=== PATIENT | male | born 1990 | race Caucasian/White ===

== ENCOUNTER 2017-12-12 01:35 | Inpatient (IN) | payer MEDICAID ==
[~2017-12-12] VITALS: Ht 188 cm; Wt 80.3 kg
[2017-12-12] VITALS (13 sets, daily range): BP systolic 121–154; BP diastolic 72–99
[~2017-12-12 01:35] MED LIST: CLIN300C53 PO; DOXY-200 PO; ERYT333T76 PO; IBUP-1986 PO; LACT1CAP26 PO
[2017-12-12] MEDS ORDERED: ondansetron/PF 4mg/2ml inj IV ONE (01:55)
[2017-12-12] MEDS ORDERED: normal saline 1000ML IV soln IV ONE (01:55)
[2017-12-12] MEDS ORDERED: morphine 2 MG/ML inj. syringe IV ONE (01:55)
[2017-12-12] MEDS ORDERED: vancomycin/NS 1 GM ADD-VANTAGE 250 ML IV ONE (01:55)
[2017-12-12] MEDS ORDERED: clindamycin-Cleocin 900mg/D5W 50 ML IV ONE (01:55)
[2017-12-12 04:39] LABS: BASOPHILS # (AUTO) 0.1 X10'3 (0-0.2); BASOPHILS % (AUTO) 0.4 % (0-1); EOSINOPHILS # (AUTO) 0.3 X10'3 (0-0.9); EOSINOPHILS % (AUTO) 2.3 % (0-6); HEMATOCRIT 35.6 % (42.0-52.0); HEMOGLOBIN 11.9 g/dl (14.0-17.9); LYMPHOCYTES # (AUTO) 1.9 X10'3 (1.1-4.8); LYMPHOCYTES % (AUTO) 13.5 % (21-51); MEAN CORPUSCULAR HEMOGLOBIN 28.7 PG (27.0-31.0); MEAN CORPUSCULAR HGB CONC 33.5 % (33.0-36.5); MEAN CORPUSCULAR VOLUME 85.7 FL (78-98); MEAN PLATELET VOLUME 7.5 FL (7.4-10.4); MONOCYTES # (AUTO) 0.9 X10'3 (0-0.9); MONOCYTES % (AUTO) 6.6 % (2-12); NEUTROPHILS % (AUTO) 77.2 % (42-75); PLATELET COUNT 330 X10'3 (140-440); RED BLOOD COUNT 4.15 X10'6 (4.70-6.10); RED CELL DISTRIBUTION WIDTH 14.6 % (11.5-14.5); WHITE BLOOD COUNT 14.2 X10'3 (4.5-11.0)
[2017-12-12 04:57] LABS: ALANINE AMINOTRANSFERASE 40 U/L (12-78); ALBUMIN/GLOBULIN RATIO 0.8 (1.1-1.5); ALKALINE PHOSPHATASE 64 IU/L (46-116); ANION GAP 4 (8-16); ASPARTATE AMINO TRANSFERASE 30 U/L (10-37); BILIRUBIN,TOTAL 0.5 MG/DL (0.1-1.0); BLOOD UREA NITROGEN 12 MG/DL (7-18); BUN/CREATININE RATIO 17.1 (5.4-32.0); CALCIUM 8.5 MG/DL (8.5-10.1); CHLORIDE 103 MMOL/L (99-107); GLUCOSE 138 MG/DL (70-104); POTASSIUM 3.7 MMOL/L (3.5-5.1); SODIUM 137 MMOL/L (135-145); TOTAL CARBON DIOXIDE 30.1 MMOL/L (24-32); TOTAL PROTEIN 6.8 G/DL (6.4-8.2); eGFR > 90 ML/MIN
[2017-12-12 04:58] LABS: PARTIAL THROMBOPLASTIN TIME 36 SECONDS (22-32); PROTHROMBIN TIME 10.2 SECONDS (9.0-12.0)
[2017-12-12] MEDS: normal saline 1000ml 1,000 ML IV SCH ×3 (06:17→20:15)
[2017-12-12] MEDS ORDERED: ondansetron/PF 4mg/2ml inj IV PRN ×2 (06:20→18:10)
[2017-12-12 06:26] LABS: CLARITY,URINE Clear (Clear); COLOR,URINE Yellow (Yellow); GLUCOSE, URINE Negative (Neg); KETONES,URINE Negative (Neg); NITRITES, URINE Negative (Neg); OCCULT BLOOD,URINE Negative (Neg); PH,URINE 5.5 (4.8-8.0); PROTEIN,URINE Negative (Neg); UA COLLECTION TYPE CLN CATCH MIDSTREAM
[2017-12-12 06:49] LABS: LEUKOCYTE ESTERASE ,URINE NEGATIVE (Neg)
[2017-12-12] MEDS: morphine 2 MG/ML inj. syringe IV PRN ×3 (07:14→21:43)
[2017-12-12] MEDS ORDERED: NO HOME MEDS (07:53)
[2017-12-12] MEDS: clindamycin 600mg/D5W 50ml 50 ML IV SCH ×3 (08:27→20:14)
[2017-12-12] MEDS: vancomycin/NS 1 GM ADD-VANTAGE 250 ML IV SCH ×2 (12:44→21:42)
[2017-12-12] MEDS ORDERED: BUPIVAcaine/PF 2.5 mg/ml (0.25%) 30ml vial ONE (15:45)
[2017-12-12] MEDS ORDERED: vancomycin 1,000mg inj ONE (15:45)
[2017-12-12] MEDS: lactobacillus rhamnosus 10,000 MMU CELLS/CAPSULE PO SCH (16:47)
[2017-12-12] MEDS ORDERED: sevoflurane 250ml liquid IH ONE ×2 (17:07)
[2017-12-12] MEDS ORDERED: fentaNYL/PF 50MCG/1 ML 2ML syringe ONE (17:16)
[2017-12-12] MEDS ORDERED: midazolam 2 mg/2 ml injection ONE (17:17)
[2017-12-12] MEDS ORDERED: propofol inj 20 ML IV ONE (17:55)
[2017-12-12] MEDS ORDERED: oxyCODONE/APAP 10/325mg tablet PO PRN (17:55)
[2017-12-12] MEDS ORDERED: ringers solution, lacted 1,000 ML IV SCH (18:07)
[2017-12-12] MEDS ORDERED: meperidine/PF 25mg/ml syringe IV PRN (18:10)
[2017-12-12] MEDS ORDERED: acetaminophen 1,000mg/100ml IV 100 ML IV PRN (18:10)
[2017-12-12] MEDS ORDERED: ketorolac trometh. 30mg/ml inj. IV ONE (18:10)
[2017-12-12] MEDS ORDERED: meperidine/PF 25mg/ml syringe ONE (18:10)
[2017-12-12] MEDS ORDERED: morphine 2 MG/ML inj. syringe IV PRN ×2 (18:10)
[2017-12-12] MEDS: meperidine/PF 25mg/ml syringe IV PRN ×3 (18:16→20:01)
[2017-12-13] MEDS: clindamycin 600mg/D5W 50ml 50 ML IV SCH ×3 (01:55→14:10)
[2017-12-13] MEDS: morphine 2 MG/ML inj. syringe IV PRN ×6 (02:03→23:07)
[2017-12-13] MEDS ORDERED: VANCOMYCIN LEVEL IV ONE (04:30)
[2017-12-13] MEDS: vancomycin/NS 1 GM ADD-VANTAGE 250 ML IV SCH (04:41)
[2017-12-13 06:09] LABS: BASOPHILS % (AUTO) 0.4 % (0-1); EOSINOPHILS # (AUTO) 0.3 X10'3 (0-0.9); EOSINOPHILS % (AUTO) 2.7 % (0-6); HEMATOCRIT 32.3 % (42.0-52.0); HEMOGLOBIN 11.1 g/dl (14.0-17.9); LYMPHOCYTES % (AUTO) 17.2 % (21-51); MEAN CORPUSCULAR HGB CONC 34.5 % (33.0-36.5); MEAN PLATELET VOLUME 7.6 FL (7.4-10.4); MONOCYTES # (AUTO) 0.9 X10'3 (0-0.9); MONOCYTES % (AUTO) 8.2 % (2-12); NEUTROPHILS # (AUTO) 8.1 X10'3 (1.8-7.7); NEUTROPHILS % (AUTO) 71.5 % (42-75); PLATELET COUNT 307 X10'3 (140-440); RED BLOOD COUNT 3.85 X10'6 (4.70-6.10); RED CELL DISTRIBUTION WIDTH 14.6 % (11.5-14.5); WHITE BLOOD COUNT 11.4 X10'3 (4.5-11.0)
[2017-12-13 06:26] LABS: ALANINE AMINOTRANSFERASE 40 U/L (12-78); ALBUMIN 2.5 G/DL (3.4-5.0); ALBUMIN/GLOBULIN RATIO 0.7 (1.1-1.5); ALKALINE PHOSPHATASE 55 IU/L (46-116); ANION GAP 5 (8-16); ASPARTATE AMINO TRANSFERASE 27 U/L (10-37); BILIRUBIN,TOTAL 0.5 MG/DL (0.1-1.0); BLOOD UREA NITROGEN 11 MG/DL (7-18); BUN/CREATININE RATIO 15.7 (5.4-32.0); CALCIUM 8.2 MG/DL (8.5-10.1); CHLORIDE 107 MMOL/L (99-107); GLUCOSE 101 MG/DL (70-104); POTASSIUM 4.1 MMOL/L (3.5-5.1); SODIUM 140 MMOL/L (135-145); TOTAL CARBON DIOXIDE 28.1 MMOL/L (24-32); TOTAL PROTEIN 6.2 G/DL (6.4-8.2); eGFR > 90 ML/MIN
[2017-12-13 06:41] LABS: VANCOMYCIN,TROUGH 33.2 UG/ML (6.0-14.0)
[2017-12-13 07:00] VITALS: BP 116/72
[2017-12-13] MEDS: lactobacillus rhamnosus 10,000 MMU CELLS/CAPSULE PO SCH ×2 (09:15→16:55)
[2017-12-13] MEDS: normal saline 1000ml 1,000 ML IV SCH ×2 (09:16→21:56)
[2017-12-13 11:00] VITALS: BP 137/76
[2017-12-13] MEDS ORDERED: VANCOMYCIN LEVEL IV NR (12:30)
[2017-12-13 20:00] VITALS: BP 145/74
[2017-12-13 23:00] VITALS: BP 116/58
[2017-12-14] MEDS: morphine 2 MG/ML inj. syringe IV PRN (04:24)
[2017-12-14 06:15] LABS: ALANINE AMINOTRANSFERASE 31 U/L (12-78); ALBUMIN 2.4 G/DL (3.4-5.0); ALBUMIN/GLOBULIN RATIO 0.6 (1.1-1.5); ALKALINE PHOSPHATASE 60 IU/L (46-116); ANION GAP 8 (8-16); ASPARTATE AMINO TRANSFERASE 23 U/L (10-37); BILIRUBIN,TOTAL 0.2 MG/DL (0.1-1.0); BLOOD UREA NITROGEN 6 MG/DL (7-18); CALCIUM 8.5 MG/DL (8.5-10.1); CHLORIDE 108 MMOL/L (99-107); GLUCOSE 128 MG/DL (70-104); POTASSIUM 3.5 MMOL/L (3.5-5.1); SODIUM 142 MMOL/L (135-145); TOTAL CARBON DIOXIDE 25.9 MMOL/L (24-32); TOTAL PROTEIN 6.1 G/DL (6.4-8.2); eGFR > 90 ML/MIN
[2017-12-14 06:16] LABS: BASOPHILS # (AUTO) 0.1 X10'3 (0-0.2); BASOPHILS % (AUTO) 0.5 % (0-1); EOSINOPHILS # (AUTO) 0.2 X10'3 (0-0.9); EOSINOPHILS % (AUTO) 2.5 % (0-6); HEMATOCRIT 33.5 % (42.0-52.0); HEMOGLOBIN 11.5 g/dl (14.0-17.9); LYMPHOCYTES # (AUTO) 2.3 X10'3 (1.1-4.8); LYMPHOCYTES % (AUTO) 24.1 % (21-51); MEAN CORPUSCULAR HEMOGLOBIN 28.8 PG (27.0-31.0); MEAN CORPUSCULAR HGB CONC 34.2 % (33.0-36.5); MEAN CORPUSCULAR VOLUME 84.2 FL (78-98); MEAN PLATELET VOLUME 7.4 FL (7.4-10.4); MONOCYTES # (AUTO) 0.7 X10'3 (0-0.9); MONOCYTES % (AUTO) 7.4 % (2-12); NEUTROPHILS # (AUTO) 6.2 X10'3 (1.8-7.7); NEUTROPHILS % (AUTO) 65.5 % (42-75); PLATELET COUNT 399 X10'3 (140-440); RED BLOOD COUNT 3.98 X10'6 (4.70-6.10); RED CELL DISTRIBUTION WIDTH 13.9 % (11.5-14.5); WHITE BLOOD COUNT 9.4 X10'3 (4.5-11.0)
[2017-12-14 07:00] VITALS: BP 137/70
[2017-12-14] MEDS: lactobacillus rhamnosus 10,000 MMU CELLS/CAPSULE PO SCH ×2 (07:52→17:59)
[2017-12-14] MEDS: normal saline 1000ml 1,000 ML IV SCH ×2 (08:17→23:18)
[2017-12-14] MEDS: oxyCODONE/APAP 10/325mg tablet PO PRN ×4 (10:35→23:18)
[2017-12-14 11:50] VITALS: BP 134/66
[2017-12-14] MEDS ORDERED: VANCOMYCIN LEVEL IV ONE (14:30)
[2017-12-14 19:30] VITALS: BP 135/56
[2017-12-14] MEDS ORDERED: VANCOMYCIN LEVEL IV NR (22:30)
[2017-12-14 23:30] VITALS: BP 136/66
[2017-12-15] MEDS: oxyCODONE/APAP 10/325mg tablet PO PRN ×5 (04:02→20:48)
[2017-12-15] MEDS: normal saline 1000ml 1,000 ML IV SCH ×2 (04:17→13:03)
[2017-12-15 06:22] LABS: BASOPHILS # (AUTO) 0.2 X10'3 (0-0.2); BASOPHILS % (AUTO) 1.8 % (0-1); EOSINOPHILS # (AUTO) 0.3 X10'3 (0-0.9); EOSINOPHILS % (AUTO) 3.5 % (0-6); HEMATOCRIT 34.3 % (42.0-52.0); LYMPHOCYTES # (AUTO) 3.1 X10'3 (1.1-4.8); LYMPHOCYTES % (AUTO) 33.5 % (21-51); MEAN CORPUSCULAR HEMOGLOBIN 28.9 PG (27.0-31.0); MEAN CORPUSCULAR HGB CONC 34.9 % (33.0-36.5); MEAN CORPUSCULAR VOLUME 82.8 FL (78-98); MEAN PLATELET VOLUME 7.3 FL (7.4-10.4); MONOCYTES # (AUTO) 0.7 X10'3 (0-0.9); MONOCYTES % (AUTO) 7.7 % (2-12); NEUTROPHILS % (AUTO) 53.5 % (42-75); PLATELET COUNT 446 X10'3 (140-440); RED BLOOD COUNT 4.15 X10'6 (4.70-6.10); RED CELL DISTRIBUTION WIDTH 14.4 % (11.5-14.5); WHITE BLOOD COUNT 9.3 X10'3 (4.5-11.0)
[2017-12-15 06:39] LABS: ALANINE AMINOTRANSFERASE 38 U/L (12-78); ALBUMIN 2.4 G/DL (3.4-5.0); ALBUMIN/GLOBULIN RATIO 0.7 (1.1-1.5); ALKALINE PHOSPHATASE 68 IU/L (46-116); ANION GAP 6 (8-16); ASPARTATE AMINO TRANSFERASE 24 U/L (10-37); BILIRUBIN,TOTAL 0.2 MG/DL (0.1-1.0); BLOOD UREA NITROGEN 9 MG/DL (7-18); CALCIUM 8.3 MG/DL (8.5-10.1); CHLORIDE 108 MMOL/L (99-107); CREATININE 0.82 MG/DL (0.60-1.10); GLUCOSE 97 MG/DL (70-104); POTASSIUM 4.1 MMOL/L (3.5-5.1); SODIUM 142 MMOL/L (135-145); TOTAL CARBON DIOXIDE 28.1 MMOL/L (24-32); eGFR > 90 ML/MIN
[2017-12-15 07:00] VITALS: BP 130/62
[2017-12-15] MEDS: lactobacillus rhamnosus 10,000 MMU CELLS/CAPSULE PO SCH ×2 (08:00→17:06)
[2017-12-15] MEDS: vancomycin inj 1,250 MG in normal saline 250ml IV soln 250 ML IV SCH ×3 (08:01→20:48)
[2017-12-15 12:00] VITALS: BP 118/64
[2017-12-15 18:00] VITALS: BP 121/66
[2017-12-16] VITALS (16 sets, daily range): BP systolic 101–172; BP diastolic 43–116
[2017-12-16] MEDS ORDERED: VANCOMYCIN LEVEL IV NR (01:30)
[2017-12-16] MEDS: vancomycin inj 1,250 MG in normal saline 250ml IV soln 250 ML IV SCH ×2 (02:00→03:27)
[2017-12-16 02:19] LABS: ALANINE AMINOTRANSFERASE 34 U/L (12-78); ALBUMIN 2.3 G/DL (3.4-5.0); ALBUMIN/GLOBULIN RATIO 0.6 (1.1-1.5); ALKALINE PHOSPHATASE 52 IU/L (46-116); ANION GAP 5 (8-16); BILIRUBIN,TOTAL 0.3 MG/DL (0.1-1.0); BLOOD UREA NITROGEN 14 MG/DL (7-18); BUN/CREATININE RATIO 21.5 (5.4-32.0); CALCIUM 8.4 MG/DL (8.5-10.1); CHLORIDE 108 MMOL/L (99-107); CREATININE 0.65 MG/DL (0.60-1.10); GLUCOSE 87 MG/DL (70-104); SODIUM 144 MMOL/L (135-145); TOTAL CARBON DIOXIDE 30.7 MMOL/L (24-32); eGFR > 90 ML/MIN
[2017-12-16 02:21] LABS: ASPARTATE AMINO TRANSFERASE 30 U/L (10-37); POTASSIUM 5.2 MMOL/L (3.5-5.1)
[2017-12-16 02:24] LABS: VANCOMYCIN,TROUGH 24.9 UG/ML (6.0-14.0)
[2017-12-16] MEDS: normal saline 1000ml 1,000 ML IV SCH ×3 (03:04→14:35)
[2017-12-16] MEDS: oxyCODONE/APAP 10/325mg tablet PO PRN ×4 (03:04→22:59)
[2017-12-16] MEDS: lactobacillus rhamnosus 10,000 MMU CELLS/CAPSULE PO SCH ×2 (09:58→17:01)
[2017-12-16] MEDS: VANCOMYCIN 750MG IV in NS 250 ML IV SCH ×3 (11:32→22:57)
[2017-12-16] MEDS ORDERED: fentaNYL/PF 50MCG/1 ML 2ML syringe ONE (12:44)
[2017-12-16] MEDS ORDERED: midazolam 2 mg/2 ml injection ONE (12:44)
[2017-12-16] MEDS ORDERED: LIDOcaine 2% (20mg/ml) 5ml vial ONE (12:46)
[2017-12-16] MEDS ORDERED: propofol inj 20 ML IV ONE ×2 (12:46→13:26)
[2017-12-16] MEDS ORDERED: vancomycin 1,000mg inj ONE (13:01)
[2017-12-16] MEDS ORDERED: ringers solution, lacted 1,000 ML IV SCH (13:33)
[2017-12-16] MEDS ORDERED: morphine 2 MG/ML inj. syringe IV PRN ×2 (13:35)
[2017-12-16] MEDS ORDERED: ondansetron/PF 4mg/2ml inj IV PRN (13:35)
[2017-12-16] MEDS ORDERED: proCHLORperazine 10 MG/2 ml inj IV PRN (13:35)
[2017-12-16] MEDS ORDERED: ketorolac trometh. 30mg/ml inj. IV ONE (13:35)
[2017-12-16] MEDS ORDERED: acetaminophen 325mg tablet PO PRN (13:35)
[2017-12-16] MEDS ORDERED: meperidine/PF 50mg/ml syringe IV PRN ×2 (13:35)
[2017-12-16] MEDS: meperidine/PF 50mg/ml syringe IV PRN ×2 (13:50→13:54)
[2017-12-16] MEDS ORDERED: morphine 5 MG/ML injection IV PRN ×2 (15:45)
[2017-12-16] MEDS: morphine 5 MG/ML injection IV PRN ×2 (15:54→21:03)
[2017-12-17] VITALS: BP 138/74
[2017-12-17] MEDS: morphine 5 MG/ML injection IV PRN (01:28)
[2017-12-17] MEDS: normal saline 1000ml 1,000 ML IV SCH (04:05)
[2017-12-17] MEDS ORDERED: VANCOMYCIN LEVEL IV NR (04:30)
[2017-12-17] MEDS: VANCOMYCIN 750MG IV in NS 250 ML IV SCH (05:19)
[2017-12-17] MEDS: oxyCODONE/APAP 10/325mg tablet PO PRN ×2 (05:20→09:22)
[2017-12-17 05:44] LABS: BASOPHILS # (AUTO) 0.1 X10'3 (0-0.2); BASOPHILS % (AUTO) 0.4 % (0-1); EOSINOPHILS # (AUTO) 0.8 X10'3 (0-0.9); EOSINOPHILS % (AUTO) 6.3 % (0-6); HEMATOCRIT 34.5 % (42.0-52.0); HEMOGLOBIN 11.8 g/dl (14.0-17.9); LYMPHOCYTES # (AUTO) 3.2 X10'3 (1.1-4.8); LYMPHOCYTES % (AUTO) 24.3 % (21-51); MEAN CORPUSCULAR HEMOGLOBIN 28.9 PG (27.0-31.0); MEAN CORPUSCULAR HGB CONC 34.1 % (33.0-36.5); MEAN CORPUSCULAR VOLUME 84.8 FL (78-98); MEAN PLATELET VOLUME 7.8 FL (7.4-10.4); MONOCYTES # (AUTO) 0.7 X10'3 (0-0.9); MONOCYTES % (AUTO) 5.5 % (2-12); NEUTROPHILS # (AUTO) 8.3 X10'3 (1.8-7.7); NEUTROPHILS % (AUTO) 63.5 % (42-75); PLATELET COUNT 344 X10'3 (140-440); RED BLOOD COUNT 4.07 X10'6 (4.70-6.10); RED CELL DISTRIBUTION WIDTH 14.5 % (11.5-14.5); WHITE BLOOD COUNT 13.1 X10'3 (4.5-11.0)
[2017-12-17 06:34] LABS: ALANINE AMINOTRANSFERASE 39 U/L (12-78); ALBUMIN 2.3 G/DL (3.4-5.0); ALBUMIN/GLOBULIN RATIO 0.7 (1.1-1.5); ALKALINE PHOSPHATASE 58 IU/L (46-116); ANION GAP 9 (8-16); ASPARTATE AMINO TRANSFERASE 33 U/L (10-37); BILIRUBIN,TOTAL 0.2 MG/DL (0.1-1.0); BLOOD UREA NITROGEN 17 MG/DL (7-18); CHLORIDE 107 MMOL/L (99-107); CREATININE 0.68 MG/DL (0.60-1.10); GLUCOSE 87 MG/DL (70-104); POTASSIUM 3.9 MMOL/L (3.5-5.1); SODIUM 140 MMOL/L (135-145); TOTAL CARBON DIOXIDE 24.5 MMOL/L (24-32); TOTAL PROTEIN 5.8 G/DL (6.4-8.2); VANCOMYCIN,TROUGH 10.6 UG/ML (6.0-14.0); eGFR > 90 ML/MIN
[2017-12-17 06:45] VITALS: BP 118/64
[2017-12-17] MEDS: lactobacillus rhamnosus 10,000 MMU CELLS/CAPSULE PO SCH (09:21)
[2017-12-17] MEDS ORDERED: DOXY-200 PO (09:53)
[2017-12-17 10:55] VITALS: BP 123/56
[2017-12-17] MEDS ORDERED: vancomycin/NS 1 GM ADD-VANTAGE 250 ML X 1 DOSE IV SCH (11:00)
[2017-12-18] MEDS ORDERED: VANCOMYCIN LEVEL IV NR (04:30)
== END 2017-12-17 13:57 | disposition home or self-care (01) | DRG 710 ==
LOC: ER 01:36 → ED HOLD 06:17 → MED 3N 11:49 → PACU 16:52 → MED 3N 20:13
PROVIDERS: ADMIT Internal Medicine; ATTEND Internal Medicine
PROC: 0KB60ZZ Excision of Left Shoulder Muscle, Open Approach (ICD-10-PCS; principal; 2017-12-12 17:07)
DX: A41.9 Sepsis, unspecified organism (principal); M60.022 Infective myositis, left upper arm; L03.114 Cellulitis of left upper limb; L02.91 Cutaneous abscess, unspecified; B95.62 Methicillin resistant Staphylococcus aureus infection as the cause of diseases classified elsewhere; F12.90 Cannabis use, unspecified, uncomplicated; F11.10 Opioid abuse, uncomplicated; F15.10 Other stimulant abuse, uncomplicated; F17.200 Nicotine dependence, unspecified, uncomplicated; Z88.0 Allergy status to penicillin; Z81.3 Family history of other psychoactive substance abuse and dependence
CPT/HCPCS: 36415; 73201; 80053; 80202; 81001; 83605; 83735; 84145; 85025; 85610; 85730; 87040; 87070; 87075; 87077; 87186; 93005; 96374; 96375; 96376; 99285; A7000; J0131; J1885; J2001; J2175; J2250; J2270; J2405; J2704; J3010; J3370; J3490; J7030; J7120

== ENCOUNTER 2018-03-29 12:16 | Emergency (ER) | payer MEDICAID ==
[~2018-03-29 12:16] MED LIST changes: -CLIN300C53 PO; -DOXY-200 PO; -ERYT333T76 PO; -IBUP-1986 PO; -LACT1CAP26 PO; +NO HOME MEDS
== END 2018-03-29 14:21 | disposition left against medical advice (07) ==
LOC: ER 12:16
DX: R11.0 Nausea (principal); Z53.21 Procedure and treatment not carried out due to patient leaving prior to being seen by health care provider

== ENCOUNTER 2018-04-18 13:36 | Emergency (ER) | payer MEDICAID ==
[~2018-04-18] VITALS: Ht 188 cm; Wt 78.1 kg
[2018-04-18 13:37] VITALS: BP 136/80
[2018-04-18] MEDS ORDERED: CLIN300C85 PO (15:57)
== END 2018-04-18 16:08 | disposition home or self-care (01) ==
LOC: ER 13:36
DX: S90.122A Contusion of left lesser toe(s) without damage to nail, initial encounter (principal); F12.90 Cannabis use, unspecified, uncomplicated; F15.90 Other stimulant use, unspecified, uncomplicated; F11.90 Opioid use, unspecified, uncomplicated; Z86.14 Personal history of Methicillin resistant Staphylococcus aureus infection; Z98.890 Other specified postprocedural states; Z88.0 Allergy status to penicillin; Z79.899 Other long term (current) drug therapy; X58.XXXA Exposure to other specified factors, initial encounter; Y93.89 Activity, other specified; Y92.89 Other specified places as the place of occurrence of the external cause; Y99.8 Other external cause status
CPT/HCPCS: 73660; 99284

== ENCOUNTER 2018-06-08 02:10 | Inpatient (IN) | payer MEDICAID ==
[2018-06-08] VITALS (16 sets, daily range): BP systolic 110–150; BP diastolic 62–92
[~2018-06-08] VITALS: Ht 188 cm; Wt 75.0 kg
[~2018-06-08 02:10] MED LIST changes: +CLIN300C85 PO
[2018-06-08] MEDS ORDERED: vancomycin/NS 1 GM ADD-VANTAGE 250 ML IV ONE (02:30)
[2018-06-08] MEDS ORDERED: ketorolac tromethamine 15mg/ml inj. IV ONE (02:30)
[2018-06-08] MEDS ORDERED: normal saline 1000ML IV soln IV ONE (02:30)
[2018-06-08] MEDS ORDERED: CefTRIAXone/D5W-Rocephin 1gm 50 ML IV ONE (02:30)
[2018-06-08] MEDS ORDERED: iohexol 300mg/ml 100ml inj. ONE (02:40)
[2018-06-08 03:20] LABS: BASOPHILS # (AUTO) 0.1 X10'3 (0-0.2); BASOPHILS % (AUTO) 0.3 % (0-1); EOSINOPHILS # (AUTO) 0.3 X10'3 (0-0.9); EOSINOPHILS % (AUTO) 1.4 % (0-6); HEMATOCRIT 40.3 % (42.0-52.0); HEMOGLOBIN 13.5 g/dl (14.0-17.9); LYMPHOCYTES # (AUTO) 1.7 X10'3 (1.1-4.8); LYMPHOCYTES % (AUTO) 9.1 % (21-51); MEAN CORPUSCULAR HEMOGLOBIN 29.3 PG (27.0-31.0); MEAN CORPUSCULAR HGB CONC 33.5 % (33.0-36.5); MEAN CORPUSCULAR VOLUME 87.4 FL (78-98); MONOCYTES # (AUTO) 1.3 X10'3 (0-0.9); MONOCYTES % (AUTO) 6.8 % (2-12); NEUTROPHILS # (AUTO) 15.6 X10'3 (1.8-7.7); NEUTROPHILS % (AUTO) 82.4 % (42-75); PLATELET COUNT 279 X10'3 (140-440); RED BLOOD COUNT 4.61 X10'6 (4.70-6.10); RED CELL DISTRIBUTION WIDTH 13.9 % (11.5-14.5); WHITE BLOOD COUNT 18.9 X10'3 (4.5-11.0)
[2018-06-08 03:27] LABS: PARTIAL THROMBOPLASTIN TIME 32 SECONDS (22-32); PROTHROMBIN TIME 10.5 SECONDS (9.0-12.0)
[2018-06-08 03:31] LABS: ALANINE AMINOTRANSFERASE 39 U/L (12-78); ALBUMIN 3.7 G/DL (3.4-5.0); ALBUMIN/GLOBULIN RATIO 0.7 (1.1-1.5); ALKALINE PHOSPHATASE 69 IU/L (46-116); ANION GAP 7 (8-16); ASPARTATE AMINO TRANSFERASE 41 U/L (10-37); BILIRUBIN,TOTAL 0.6 MG/DL (0.1-1.0); BLOOD UREA NITROGEN 14 MG/DL (7-18); BUN/CREATININE RATIO 15.7 (5.4-32.0); CALCIUM 9.1 MG/DL (8.5-10.1); CHLORIDE 97 MMOL/L (99-107); CREATININE 0.89 MG/DL (0.60-1.10); GLUCOSE 123 MG/DL (70-104); POTASSIUM 3.7 MMOL/L (3.5-5.1); SODIUM 134 MMOL/L (135-145); TOTAL CARBON DIOXIDE 29.9 MMOL/L (24-32); eGFR > 90 ML/MIN
[2018-06-08] MEDS ORDERED: acetaminophen 325mg tablet PO PRN ×2 (05:55)
[2018-06-08] MEDS ORDERED: mag hydrox/Alum hydrox/simeth 30ml oral suspension PO PRN (05:55)
[2018-06-08] MEDS ORDERED: ondansetron/PF 4mg/2ml inj IV PRN ×2 (05:55→11:10)
[2018-06-08] MEDS ORDERED: metoclopramide 5 mg/ml inj IV PRN (05:55)
[2018-06-08] MEDS ORDERED: diphenhydrAMINE 25mg capsule PO PRN (05:55)
[2018-06-08] MEDS ORDERED: magnesium hydroxide 30ml (MOM) UD suspension PO PRN (05:55)
[2018-06-08] MEDS ORDERED: acetaminophen 650mg rectal suppository RC PRN (05:55)
[2018-06-08] MEDS ORDERED: HYDROcodone/acetaminophen 5mg/325mg tablet PO PRN (05:55)
[2018-06-08] MEDS ORDERED: tetanus & diphtheria toxoid (Td) vaccine 0.5ml IMVAC ONE (05:55)
[2018-06-08] MEDS ORDERED: diphenhydrAMINE 50 mg/ml inj IV PRN (05:55)
[2018-06-08] MEDS: normal saline 1000ml 1,000 ML IV SCH ×2 (06:44→12:31)
[2018-06-08] MEDS: morphine 4 MG/ML inj SYRINge IV PRN ×2 (06:46→19:30)
[2018-06-08] MEDS ORDERED: TETanus/Pertussis (Acell)/Diphther VAC/PF (Tdap-Adult) 0.5ml syringe IMVAC ONE (07:05)
[2018-06-08] MEDS: docusate sod 100mg capsule PO SCH ×2 (07:07→20:00)
[2018-06-08] MEDS: pantoprazole 40 MG vial IV SCH (07:09)
[2018-06-08] MEDS: piperacillin/tazo 4.5gm/100ml 100 ML IV SCH ×3 (07:49→23:39)
[2018-06-08] MEDS ORDERED: vancomycin/NS 1 GM ADD-VANTAGE 250 ML IV SCH (08:00)
[2018-06-08] MEDS ORDERED: ceFAZolin 1000mg inj ONE (10:16)
[2018-06-08] MEDS ORDERED: midazolam 2 mg/2 ml injection ONE (10:35)
[2018-06-08] MEDS ORDERED: dexamethasone sod phosphate 10mg/ml inj ONE (10:35)
[2018-06-08] MEDS ORDERED: sevoflurane 250ml liquid IH ONE (10:35)
[2018-06-08] MEDS ORDERED: fentaNYL /PF 50mcg/ml 5ml ampule ONE (10:36)
[2018-06-08] MEDS ORDERED: propofol inj 20 ML IV ONE (10:37)
[2018-06-08] MEDS ORDERED: LIDOcaine 2% (20mg/ml) 5ml vial ONE (10:37)
[2018-06-08] MEDS ORDERED: ondansetron/PF 4mg/2ml inj ONE (11:00)
[2018-06-08] MEDS ORDERED: meperidine/PF 25mg/ml syringe IV PRN ×3 (11:10)
[2018-06-08] MEDS ORDERED: proCHLORperazine 10 MG/2 ml inj IV PRN (11:10)
[2018-06-08] MEDS ORDERED: ringers solution, lacted 1,000 ML IV SCH (11:10)
[2018-06-08] MEDS ORDERED: morphine 4 MG/ML inj SYRINge IV PRN ×2 (11:10)
[2018-06-08] MEDS: vancomycin/NS 1 GM ADD-VANTAGE 250 ML IV SCH ×2 (12:31→20:03)
[2018-06-08] MEDS: HYDROcodone/acetaminophen 10/325mg tab PO PRN (19:23)
[2018-06-08] MEDS ORDERED: temazepam 15mg capsule PO PRN (21:00)
[2018-06-09] MEDS: morphine 4 MG/ML inj SYRINge IV PRN ×6 (00:45→23:18)
[2018-06-09] MEDS: normal saline 1000ml 1,000 ML IV SCH ×3 (02:32→22:51)
[2018-06-09] MEDS ORDERED: VANCOMYCIN LEVEL IV NR (04:30)
[2018-06-09] MEDS: vancomycin/NS 1 GM ADD-VANTAGE 250 ML IV SCH ×2 (05:32→12:23)
[2018-06-09 06:00] VITALS: BP 101/70
[2018-06-09] MEDS: docusate sod 100mg capsule PO SCH ×2 (09:00→20:00)
[2018-06-09] MEDS: pantoprazole 40 MG vial IV SCH (09:00)
[2018-06-09] MEDS: piperacillin/tazo 4.5gm/100ml 100 ML IV SCH ×2 (09:00→18:09)
[2018-06-09 10:00] VITALS: BP 128/89
[2018-06-09 14:00] VITALS: BP 133/81
[2018-06-09 18:00] VITALS: BP 132/73
[2018-06-09] MEDS ORDERED: clindamycin 600mg/D5W 50ml 50 ML IV SCH (20:00)
[2018-06-09] MEDS: linezolid 600mg/300ml PREMIX 300 ML IV SCH (20:37)
[2018-06-09] MEDS: lactobacillus rhamnosus 10,000 MMU CELLS/CAPSULE PO SCH (20:37)
[2018-06-09] MEDS: HYDROcodone/acetaminophen 10/325mg tab PO PRN (20:42)
[2018-06-09 22:00] VITALS: BP 132/73
[2018-06-09] MEDS ORDERED: vancomycin/NS 1 GM ADD-VANTAGE 250 ML IV SCH (23:00)
[2018-06-10] MEDS: piperacillin/tazo 4.5gm/100ml 100 ML IV SCH ×4 (00:53→23:46)
[2018-06-10] MEDS: morphine 2 MG/ML inj. syringe IV PRN ×5 (04:11→23:47)
[2018-06-10] MEDS ORDERED: VANCOMYCIN LEVEL IV NR ×2 (04:30)
[2018-06-10 06:00] VITALS: BP 124/75
[2018-06-10] MEDS: pantoprazole 40 MG vial IV SCH (08:39)
[2018-06-10] MEDS: HYDROcodone/acetaminophen 10/325mg tab PO PRN (08:39)
[2018-06-10] MEDS: lactobacillus rhamnosus 10,000 MMU CELLS/CAPSULE PO SCH ×2 (08:39→19:36)
[2018-06-10] MEDS: docusate sod 100mg capsule PO SCH ×2 (08:39→20:00)
[2018-06-10] MEDS: linezolid 600mg/300ml PREMIX 300 ML IV SCH ×2 (08:42→19:37)
[2018-06-10 10:00] VITALS: BP 132/70
[2018-06-10] MEDS: normal saline 1000ml 1,000 ML IV SCH (17:46)
[2018-06-10 18:00] VITALS: BP 118/60
[2018-06-10 22:00] VITALS: BP 126/76
[2018-06-10] MEDS ORDERED: VANCOMYCIN LEVEL IV ONE (22:30)
[2018-06-11] MEDS: morphine 2 MG/ML inj. syringe IV PRN ×2 (03:40→08:16)
[2018-06-11] MEDS: normal saline 1000ml 1,000 ML IV SCH (03:41)
[2018-06-11 06:00] VITALS: BP 109/61
[2018-06-11] MEDS: piperacillin/tazo 4.5gm/100ml 100 ML IV SCH (07:13)
[2018-06-11] MEDS: pantoprazole 40 MG vial IV SCH (07:13)
[2018-06-11] MEDS: lactobacillus rhamnosus 10,000 MMU CELLS/CAPSULE PO SCH (07:13)
[2018-06-11] MEDS: docusate sod 100mg capsule PO SCH (08:00)
[2018-06-11] MEDS: linezolid 600mg/300ml PREMIX 300 ML IV SCH (08:17)
[2018-06-11 10:00] VITALS: BP 118/71
== END 2018-06-11 12:57 | disposition left against medical advice (07) | DRG 720 ==
LOC: ER 02:11 → ED HOLD 05:55 → ORTHO 4S 12:00
PROVIDERS: ADMIT Family Medicine; ATTEND Family Medicine
PROC: BP2T1ZZ Computerized Tomography (CT Scan) of Right Upper Extremity using Low Osmolar Contrast (ICD-10-PCS; 2018-06-08)
PROC: 0K953ZZ Drainage of Right Shoulder Muscle, Percutaneous Approach (ICD-10-PCS; principal; 2018-06-08 10:35)
DX: A41.9 Sepsis, unspecified organism (principal); F11.10 Opioid abuse, uncomplicated; F17.200 Nicotine dependence, unspecified, uncomplicated; L02.413 Cutaneous abscess of right upper limb; Z53.21 Procedure and treatment not carried out due to patient leaving prior to being seen by health care provider; F12.90 Cannabis use, unspecified, uncomplicated; L03.113 Cellulitis of right upper limb; F15.90 Other stimulant use, unspecified, uncomplicated; Z86.14 Personal history of Methicillin resistant Staphylococcus aureus infection; Z81.3 Family history of other psychoactive substance abuse and dependence; Z91.19 Patient's noncompliance with other medical treatment and regimen; Z71.51 Drug abuse counseling and surveillance of drug abuser
CPT/HCPCS: 36415; 73201; 80053; 83605; 83735; 84145; 85025; 85610; 85730; 87040; 87070; 87075; 87077; 87102; 87186; 90715; 96365; 96367; 96375; 99285; A6258; A6446; A6449; A7000; C9113; J0690; J0696; J1100; J1885; J2001; J2020; J2250; J2270; J2405; J2543; J2704; J3010; J3370; J7030; J7120; Q9967

== ENCOUNTER 2020-11-04 18:05 | Emergency (ER) | payer MEDICAID ==
[~2020-11-04] VITALS: Ht 185.4 cm; Wt 95.0 kg
[~2020-11-04 18:05] MED LIST changes: -CLIN300C85 PO
[2020-11-04 18:19] VITALS: BP 153/98
[2020-11-04 19:45] LABS: CLARITY,URINE SLIGHTLY CLOUDY (Clear); COLOR,URINE YELLOW (Yellow); GLUCOSE, URINE NEGATIVE (Neg); KETONES,URINE NEGATIVE (Neg); LEUKOCYTE ESTERASE ,URINE SMALL (Neg); NITRITES, URINE NEGATIVE (Neg); OCCULT BLOOD,URINE NEGATIVE (Neg); PROTEIN,URINE NEGATIVE (Neg)
[2020-11-04 19:58] LABS: UA COLLECTION TYPE CLN CATCH MIDSTREAM
[2020-11-04 20:00] LABS: BACTERIA,URINE 1+ /HPF (Neg); RBC,URINE 20-50 /HPF (0-2); SQUAMOUS EPITHELIAL CELL,UR FEW /LPF (FEW); WBC,URINE 0-4 /HPF (0-4)
[2020-11-04] MEDS ORDERED: azithromycin 250mg tablet PO ONE ×2 (20:30)
[2020-11-04] MEDS ORDERED: gentamicin 40 MG/1 ML inj IM ONE ×2 (20:35)
== END 2020-11-04 21:15 | disposition home or self-care (01) ==
LOC: ER 18:06
DX: N34.2 Other urethritis (principal); F12.90 Cannabis use, unspecified, uncomplicated; F15.90 Other stimulant use, unspecified, uncomplicated; F11.90 Opioid use, unspecified, uncomplicated; Z86.14 Personal history of Methicillin resistant Staphylococcus aureus infection; Z98.890 Other specified postprocedural states; Z72.89 Other problems related to lifestyle; Z88.0 Allergy status to penicillin
CPT/HCPCS: 36415; 81001; 87088; 87491; 87591; 96372; 99284; J1580

== ENCOUNTER 2021-06-18 15:22 | Emergency (ER) | payer MEDICAID ==
[~2021-06-18] VITALS: Ht 185.4 cm; Wt 75.0 kg
[2021-06-18 15:56] VITALS: BP 139/108
== END 2021-06-18 16:29 ==
LOC: ER 15:23
DX: Z00.8 Encounter for other general examination (principal); R06.02 Shortness of breath; R42 Dizziness and giddiness; R41.0 Disorientation, unspecified; F12.90 Cannabis use, unspecified, uncomplicated; F15.90 Other stimulant use, unspecified, uncomplicated; F11.90 Opioid use, unspecified, uncomplicated; Z86.14 Personal history of Methicillin resistant Staphylococcus aureus infection; Z98.890 Other specified postprocedural states; Z72.89 Other problems related to lifestyle; Z88.0 Allergy status to penicillin
CPT/HCPCS: 99283

== ENCOUNTER 2022-06-27 11:20 | Emergency (ER) | payer MEDICAID ==
[~2022-06-27] VITALS: Ht 185.4 cm; Wt 97.3 kg
[2022-06-27 11:30] VITALS: BP 142/91
[2022-06-27] MEDS ORDERED: ketorolac trometh inj. 60 MG/2 ML VIAL IM ONE (12:50)
[2022-06-27] MEDS ORDERED: IBUP-1986 PO (13:04)
== END 2022-06-27 13:17 | disposition home or self-care (01) ==
LOC: ER 11:21
DX: M25.512 Pain in left shoulder (principal); F12.90 Cannabis use, unspecified, uncomplicated; F15.20 Other stimulant dependence, uncomplicated; F11.90 Opioid use, unspecified, uncomplicated; Z88.0 Allergy status to penicillin
CPT/HCPCS: 96372; 99283; J1885

== ENCOUNTER 2022-09-02 22:19 | Emergency (ER) | payer MEDICAID ==
[~2022-09-02] VITALS: Ht 185.4 cm; Wt 100.0 kg
[~2022-09-02 22:19] MED LIST changes: +IBUP-1986 PO
[2022-09-02 23:04] VITALS: BP 136/89
[2022-09-02] MEDS ORDERED: acetaminophen 325mg tablet PO ONE (23:55)
[2022-09-03] MEDS ORDERED: iohexol 300mg/ml 100ml inj. ONE (00:14)
[2022-09-03 00:28] LABS: MEAN CORPUSCULAR HEMOGLOBIN 31.5 PG (27.0-31.0); MEAN PLATELET VOLUME 8.5 FL (7.4-10.4)
[2022-09-03 00:29] LABS: BASOPHILS # (AUTO) 0.1 X10'3 (0-0.2); BASOPHILS % (AUTO) 0.7 % (0-1); EOSINOPHILS # (AUTO) 0.2 X10'3 (0-0.9); EOSINOPHILS % (AUTO) 2.2 % (0-6); HEMATOCRIT 43.7 % (42.0-52.0); LYMPHOCYTES # (AUTO) 3.1 X10'3 (1.1-4.8); LYMPHOCYTES % (AUTO) 40.2 % (21-51); MEAN CORPUSCULAR HGB CONC 34.2 g/dL (33.0-36.5); MEAN CORPUSCULAR VOLUME 92.1 FL (78-98); MONOCYTES # (AUTO) 0.5 X10'3 (0-0.9); MONOCYTES % (AUTO) 7.1 % (2-12); NEUTROPHILS # (AUTO) 3.8 X10'3 (1.8-7.7); NEUTROPHILS % (AUTO) 49.8 % (42-75); PLATELET COUNT 272 X10'3 (140-440); RED BLOOD COUNT 4.75 X10'6 (4.70-6.10); RED CELL DISTRIBUTION WIDTH 13.2 % (11.5-14.5); WHITE BLOOD COUNT 7.6 X10'3 (4.5-11.0)
[2022-09-03 00:41] LABS: ALANINE AMINOTRANSFERASE 49 U/L (12-78); ALBUMIN 4.1 G/DL (3.4-5.0); ALBUMIN/GLOBULIN RATIO 1.5 (1.1-1.5); ALKALINE PHOSPHATASE 62 IU/L (46-116); ANION GAP 10 (8-16); ASPARTATE AMINO TRANSFERASE 33 U/L (10-37); BILIRUBIN,TOTAL 0.4 MG/DL (0.1-1.0); BLOOD UREA NITROGEN 21 MG/DL (7-18); BUN/CREATININE RATIO 26.3 (5.4-32.0); CALCIUM 9.1 MG/DL (8.5-10.1); CHLORIDE 105 MMOL/L (99-107); GLUCOSE 102 MG/DL (70-104); POTASSIUM 3.9 MMOL/L (3.5-5.1); SODIUM 141 MMOL/L (135-145); TOTAL PROTEIN 6.9 G/DL (6.4-8.2); eGFR > 90 ML/MIN
[2022-09-03 01:34] LABS: CLARITY,URINE CLEAR (Clear); COLOR,URINE YELLOW (Yellow); GLUCOSE, URINE NEGATIVE (Neg); KETONES,URINE NEGATIVE (Neg); LEUKOCYTE ESTERASE ,URINE NEGATIVE (Neg); NITRITES, URINE NEGATIVE (Neg); OCCULT BLOOD,URINE NEGATIVE (Neg); PH,URINE 5.5 (4.8-8.0); PROTEIN,URINE NEGATIVE (Neg); UROBILINOGEN,URINE 0.2 E.U/dL (0.2-1.0)
[2022-09-03 01:35] LABS: UA COLLECTION TYPE CLN CATCH MIDSTREAM
--- NOTE | 2022-09-03 02:00 | NUR ---
patient has passed po challenge was able to drink 12 oz of water with oput difficulty denies [place].Dr. jones
== END 2022-09-03 02:55 | disposition home or self-care (01) ==
LOC: ER 22:21
DX: S30.811A Abrasion of abdominal wall, initial encounter (principal); R07.89 Other chest pain; R10.30 Lower abdominal pain, unspecified; R51.9 Headache, unspecified; Z86.14 Personal history of Methicillin resistant Staphylococcus aureus infection; Z98.890 Other specified postprocedural states; Z88.0 Allergy status to penicillin; Z79.899 Other long term (current) drug therapy; V99.XXXA Unspecified transport accident, initial encounter; Y93.89 Activity, other specified; Y92.89 Other specified places as the place of occurrence of the external cause; Y99.8 Other external cause status
CPT/HCPCS: 36415; 71046; 74177; 80053; 81003; 85025; 99285; J3490; Q9967